=== PATIENT | female | born 1975 | race Hispanic/Latino ===

== ENCOUNTER → 2016-09-10 | Day surgery (SDC) | payer SELFPAY ==
[~2016-09-10] VITALS: Ht 167.6 cm; Wt 88.9 kg
--- NOTE | 2016-09-10 18:46 | Operative Report ---
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 She would also like liposuction of the upper lateral chest area. The patient was marked in the standing position. We have further discussions about the recovery process and the expectations. She signed informed consent. She was taken intraoperatively placed supine on the table. Venodyne boots are placed and then general endotracheal anesthesia was established intravenous antibiotic treatment. Usual sterile fashion. Circumferential vertical reduction was planned and the area was de- epithelialized. It was released around the periphery. Position with 2-0 Vicryl and closed with 2-0 Vicryl and 3-0 Monocryl. A T was added to reduce us. This was done bilaterally. Really her closure was carried out of the nipple areolar complex. Return to the arms where a healed brachial incision was deepened. A flap was then developed and checked for tension before excising. Extended down the lateral chest to the curvature of the inframammary fold. Layer closure was carried out over drains. Liposuction was performed on the abdominal wall where marked preoperatively which was laterally. Also small areas of the arms with done after using standard tumescent fluid. Approximately 900 mL total was removed. Pressure dressings were applied gently to the areas of surgery.
== END ==
LOC: STS 01:50
DX: Z41.1 Encounter for cosmetic surgery (principal); N64.81 Ptosis of breast; E88.1 Lipodystrophy, not elsewhere classified
CPT/HCPCS: 81025; 88305; J0131; J0171; J0690; J1100; J2250; J2405